=== PATIENT | male | born 1990 | race Caucasian/White ===

== ENCOUNTER → 2017-04-29 | Outpatient (CLI) | payer OTHER ==
--- NOTE | 2017-04-30 07:15 | RAD ---
Cervical spine, 3 views, 04/29/2017: History: Chronic neck pain The vertebral heights and intervertebral disc spaces are well-maintained. No fracture or dislocation is identified. The prevertebral soft tissues are unremarkable. IMPRESSION: No significant cervical spine abnormality is detected.
== END | disposition home or self-care (01) ==
LOC: RAD 17:03
PROVIDERS: ATTEND Family Medicine
DX: M54.2 Cervicalgia (principal); G89.29 Other chronic pain
CPT/HCPCS: 72040